=== PATIENT | male | born 1960 | race Caucasian/White ===

== ENCOUNTER 2018-03-17 07:46 | Day surgery (SDC) | payer MEDICARE, MEDICAID ==
[~2018-03-17] VITALS: Ht 188 cm; Wt 133.6 kg
[~2018-03-17 07:46] MED LIST: ASPI81 PO; ATOR40TA28 PO; BUPR-93 PO; BUSP15 PO; CLOP75 PO; ISOS30TA6 PO; METO25 PO; NITR.4 SL; RANO500T3 PO; VENL-68 PO
[2018-03-17 08:30] LABS: CALCIUM, TOTAL 7.7 mg/dL (8.8-10.5); CREATININE 1.39 mg/dL (0.60-1.30); POTASSIUM 3.5 mmol/L (3.5-5.1)
[2018-03-17] MEDS ORDERED: 0.9% SODIUM CHLORIDE 10 ML SYRINGE IVP PRN (08:30)
[2018-03-17] MEDS ORDERED: METOPROLOL TARTRATE 50 MG TABLET PO PRN (08:30)
[2018-03-17] MEDS ORDERED: SODIUM CHLORIDE 0.9% 500 ML IV ONE ×2 (08:49→09:00)
[2018-03-17] MEDS ORDERED: IOVERSOL 350 MG/ML 150 ML VIAL ONE (09:03)
[2018-03-17] MEDS ORDERED: NITROGLYCERIN 400 MCG/SUBLINGUAL SPRAY 4.9 GM BOTTLE SL ONE (09:10)
== END 2018-03-17 09:50 | disposition home or self-care (01) ==
LOC: SURGERY 07:46 → EDSTATUS 10:00
PROVIDERS: ATTEND Internal Medicine Cardiovascular Disease
DX: I25.10 Atherosclerotic heart disease of native coronary artery without angina pectoris (principal); I08.3 Combined rheumatic disorders of mitral, aortic and tricuspid valves; I27.20 Pulmonary hypertension, unspecified; I11.0 Hypertensive heart disease with heart failure; I50.20 Unspecified systolic (congestive) heart failure; F17.210 Nicotine dependence, cigarettes, uncomplicated; E78.5 Hyperlipidemia, unspecified; Z95.5 Presence of coronary angioplasty implant and graft; Z86.79 Personal history of other diseases of the circulatory system; Z86.74 Personal history of sudden cardiac arrest; Z72.89 Other problems related to lifestyle; Z79.82 Long term (current) use of aspirin; Z79.891 Long term (current) use of opiate analgesic; Z79.899 Other long term (current) drug therapy; Z98.890 Other specified postprocedural states
CPT/HCPCS: 36415; 75574; 80048; J7040; Q9967